=== PATIENT | female | born 1950 | race Two or more races ===

== ENCOUNTER 2017-09-06 08:47 | Day surgery (SDC) | payer BC ==
[2017-09-06] MEDS ORDERED: TETRACAINE 0.5% OPHTH 1 DOSE AFFEYE ONE ×2 (09:00→11:11)
[2017-09-06] MEDS ORDERED: VIGAMOX 0.5% OPHTH 1 DOSE AFFEYE ONE ×5 (09:01→11:33)
[2017-09-06] MEDS ORDERED: PROLENSA OPHTH 1 DOSE AFFEYE ONE (09:12)
[2017-09-06] MEDS ORDERED: ALPHAGAN-P OPHTH 1 DOSE AFFEYE ONE (09:13)
[2017-09-06] MEDS ORDERED: AK-DILATE 2.5% OPHTH 1 DOSE OP ONE ×3 (09:14→09:16)
[2017-09-06] MEDS ORDERED: MYDRIACIL OPHTH 1 DOSE AFFEYE ONE ×3 (09:14→09:16)
[2017-09-06] MEDS ORDERED: CYCLOGYL 1% OPHTH 1 DOSE OP ONE ×3 (09:14→09:16)
[2017-09-06] MEDS ORDERED: NS 500 ML IV 500 ML IV ONE (09:41)
[2017-09-06] MEDS ORDERED: BETADINE OPHTH SOLN 5% EACHEYE ONE (11:11)
[2017-09-06] MEDS ORDERED: DUOVISC IO ONE (11:21)
[2017-09-06] MEDS ORDERED: ADRENALINE CHL INJ IJ ONE (11:21)
[2017-09-06] MEDS ORDERED: XYLOCAINE-MPF 1% IJ ONE (11:21)
[2017-09-06] MEDS ORDERED: BSS OPHTH (PLAIN) 500 ML with VANCOMYCIN HCL 500 MG VIAL 25 MG, ADRENALINE CHL INJ 1 MG IR ONE ×3 (11:22)
[2017-09-06 11:59] VITALS: BP 113/60
[2017-09-06] MEDS ORDERED: DIPRIVAN VIAL ONE (15:48)
== END 2017-09-06 11:50 | disposition home or self-care (01) ==
LOC: SURG1 08:47
PROVIDERS: ATTEND Ophthalmology
PROC: 08DK3ZZ Extraction of Left Lens, Percutaneous Approach (ICD-10-PCS; principal; 2017-09-06 17:15)
PROC: 08RK3JZ Replacement of Left Lens with Synthetic Substitute, Percutaneous Approach (ICD-10-PCS; principal; 2017-09-06 17:15)
DX: H25.12 Age-related nuclear cataract, left eye (principal)
CPT/HCPCS: A4217; J0170; J3370; J3490

== ENCOUNTER 2017-09-20 07:51 | Day surgery (SDC) | payer BC ==
[2017-09-20] MEDS ORDERED: TETRACAINE 0.5% OPHTH 1 DOSE AFFEYE ONE ×2 (08:30→11:15)
[2017-09-20] MEDS ORDERED: VIGAMOX 0.5% OPHTH 1 DOSE AFFEYE ONE ×4 (08:35→11:29)
[2017-09-20] MEDS ORDERED: PROLENSA OPHTH 1 DOSE AFFEYE ONE (08:46)
[2017-09-20] MEDS ORDERED: ALPHAGAN-P OPHTH 1 DOSE AFFEYE ONE (08:47)
[2017-09-20] MEDS ORDERED: MYDRIACIL OPHTH 1 DOSE AFFEYE ONE ×3 (08:48→08:50)
[2017-09-20] MEDS ORDERED: AK-DILATE 2.5% OPHTH 1 DOSE OP ONE ×3 (08:48→08:50)
[2017-09-20] MEDS ORDERED: CYCLOGYL 1% OPHTH 1 DOSE OP ONE ×3 (08:48→08:50)
[2017-09-20] MEDS ORDERED: NS 500 ML IV 500 ML IV ONE (08:54)
[2017-09-20] MEDS ORDERED: BETADINE OPHTH SOLN 5% EACHEYE ONE (11:15)
[2017-09-20] MEDS ORDERED: KENALOG INJ 40 MG IM ONE ×2 (11:16→11:29)
[2017-09-20] MEDS ORDERED: DIPRIVAN VIAL ONE (15:33)
[2017-09-20 16:51] VITALS: BP 140/72
== END 2017-09-20 11:50 | disposition home or self-care (01) ==
LOC: SURG1 07:51
PROVIDERS: ATTEND Ophthalmology
PROC: 08U007Z Supplement of Right Eye with Autologous Tissue Substitute, Open Approach (ICD-10-PCS; principal; 2017-09-20 11:15)
PROC: 08BSXZX Excision of Right Conjunctiva, External Approach, Diagnostic (ICD-10-PCS; principal; 2017-09-20 11:15)
DX: H11.051 Peripheral pterygium, progressive, right eye (principal)
CPT/HCPCS: A4217; J3301; J3490